=== PATIENT | female | born 1990 | race Caucasian/White ===

== ENCOUNTER 2019-02-06 13:31 | Emergency (ER) | payer OTHER ==
[~2019-02-06] VITALS: Ht 170.2 cm; Wt 107.0 kg
[~2019-02-06 13:31] MED LIST: IBUP200T2 PO; PRENTAB66 PO
[2019-02-06] MEDS ORDERED: MECLIZINE 25 MG TABLET PO ONE (14:00)
[2019-02-06] MEDS ORDERED: NS 1,000 ML IV ONE (14:00)
[2019-02-06 15:03] LABS: BASO # 0.1 10^3/uL (0.0-0.2); BASO % 0.3 % (0.0-1.0); EOS # 0.1 10^3/uL (0.0-0.50); EOS % 0.3 % (0.0-3.0); HEMATOCRIT 39.3 % (36.0-47.0); HEMOGLOBIN 13.6 g/dl (12.0-15.5); LYMPH # 1.1 10^3/uL (1.5-4.5); LYMPH % 6.3 % (24.0-44.0); MEAN CORPUSCULAR HEMOGLOBIN 32.4 pg (27.0-33.0); MEAN CORPUSCULAR HGB CONC 34.6 g/dl (32.0-36.5); MEAN CORPUSCULAR VOLUME 93.6 fl (80.0-96.0); MONO # 0.9 10^3/uL (0.0-0.8); MONO % 4.9 % (0.0-5.0); NEUTROPHILS # 15.9 10^3/uL (1.8-7.7); NEUTROPHILS % 87.6 % (36.0-66.0); PLATELET COUNT, AUTOMATED 400 10^3/uL (150-450); WHITE BLOOD COUNT 18.1 10^3/uL (4.0-10.0)
[2019-02-06 15:13] LABS: HCG, SERUM QUALITATIVE NEGATIVE (NEGATIVE)
[2019-02-06 15:20] LABS: ACETAMINOPHEN LEVEL < 2.0 UG/ML (10.0-30.0); ALBUMIN 3.9 GM/DL (3.2-5.2); ALT/SGPT 24 U/L (12-78); BILIRUBIN,DIRECT 0.1 MG/DL (0.0-0.2); BILIRUBIN,TOTAL 0.5 MG/DL (0.2-1.0); BLOOD UREA NITROGEN 7 MG/DL (7-18); CALCIUM LEVEL 9.2 MG/DL (8.5-10.1); CARBON DIOXIDE LEVEL 23 MEQ/L (21-32); CHLORIDE LEVEL 104 MEQ/L (98-107); CK-MB VALUE MASS < 1.0 NG/ML (<3.6); CPK CREATINE PHOSPHOKINASE 58 U/L (26-192); CREATININE FOR GFR 0.58 MG/DL (0.55-1.30); ETHYL ALCOHOL (ETHANOL) < 0.003 % (0.000-0.010); GLOMERULAR FILTRATION RATE > 60.0 (>60); GLUCOSE, FASTING 98 MG/DL (70-100); MB/CK RELATIVE INDEX 1.72 (< OR =4); POTASSIUM SERUM 3.5 MEQ/L (3.5-5.1); SALICYLATE LEVEL 2.2 MG/DL (5.0-30.0); SODIUM LEVEL 136 MEQ/L (136-145); THYROID STIMULATING HORMONE 0.734 uIU/ML (0.358-3.740); TOTAL PROTEIN 7.7 GM/DL (6.4-8.2); TROPONIN I < 0.02 NG/ML (< 0.10)
--- NOTE | 2019-02-06 15:54 | REP ---
Chest two views HISTORY: Shortness of breath Comparison: None The lungs are clear. The heart is normal in size. The pulmonary vasculature is normal in appearance. The bony structure is intact. IMPRESSION: No acute disease. Electronically Signed by Ant Farris MD 02/06/2019 03:45 P
[2019-02-06 15:57] LABS: AMPHETAMINES LEVEL URINE NEGATIVE (NEGATIVE); BARBITURATES URINE NEGATIVE (NEGATIVE); BENZODIAZEPINES URINE NEGATIVE (NEGATIVE); CANNABINOIDS URINE NEGATIVE (NEGATIVE); COCAINE METABOLITE URINE NEGATIVE (NEGATIVE); METHADONE URINE NEGATIVE (NEGATIVE); OPIATES URINE NEGATIVE (NEGATIVE); PHENCYCLIDINE URINE NEGATIVE (NEGATIVE)
[2019-02-06] MEDS ORDERED: MECL-68 PO (16:17)
[2019-02-06 16:23] VITALS: BP 149/80
--- NOTE | 2019-02-07 07:47 | ECGEPIP ---
[facility] - ED Test Date: 2019-02-06 Pat Name: KENISHA SANTOS Department: Room: - Gender: Female [employer] Director: ora : 1990 Requested By: Dulce Alba Order Number: [id number] Reading MD: Dulce Alba Measurements Intervals [place] Rate: 71 P: 1 LA: 160 QRS: 11 QRSD: 102 T: 8 QT: 420 QTc: 458 Interpretive Statements SINUS RHYTHM Borderline prolonged QT interval NO PRIOR FOR COMPARISON Electronically Signed on 02-07-2019 7:47:07 EDT by Dulce Alba
== END 2019-02-06 16:25 | disposition home or self-care (01) ==
LOC: M ED 13:31
DX: R42 Dizziness and giddiness (principal); R55 Syncope and collapse; R53.1 Weakness; Z72.0 Tobacco use
CPT/HCPCS: 71046; 80048; 80076; 80307; 82550; 82553; 84443; 84703; 85025; 93005; 93041; 94760; 96360; 96361; 99285; G0480